=== PATIENT | female | born 1985 | race African-American/Black ===

== ENCOUNTER 2016-06-02 20:22 | Emergency (ER) | payer SELFPAY ==
[~2016-06-02] VITALS: Ht 154.9 cm; Wt 61.5 kg
[~2016-06-02 20:22] MED LIST: ALBU6.7H INH; HYDR-3533 PO; PROV5TAB PO; Z.0.NO CURRENT MEDS; ZITH250T PO
[2016-06-02 20:23] VITALS: BP 131/81; PULSE 80; RESP 16; TEMP 98.8; O2SAT 97
--- NOTE | 2016-06-02 22:35 | PD ---
HPI Chief Complaint: ENT Complaint Time Seen by Provider: 22:33 Travel History International Travel<30 days: No Contact w/Intl Traveler<30days: No Traveled to known affect area: No History of Present Illness HPI 31-year-old black female presents to emergency department with complaints of sore throat. She states that she has been sick now for nearly a week. She has pain with swallowing. He has had some hoarseness in her throat. She denies any fever or chills. No headache. No ear pain. No shortness of breath or wheezing. No nausea vomiting. No bowel pain or diarrhea. Symptoms are moderate. Worse with swallowing. No palliative activity. PFSH Past Medical History Medical History: Denies Significant Hx Blood Disorders: No Heart Rhythm Problems: No Cancer: No Diminished Hearing: No Endocrine: No Genitourinary: No Headaches: No Hypertension: No Immune Disorder: No Musculoskeletal: No Neurologic: No Psychiatric: No Reproductive: No Respiratory: No Migraines: No Seizures: No Tetanus Vaccination: < 5 Years ?: Not : 5 Para: 2 Miscarriage: 1 : 1 Dilation and Curettage (D&C): Yes Past Surgical History Narrative Surgical , D&C Section: Yes Gynecologic Surgery: Yes ( WITH D&C APR 2009) Other Surgery: No Social History Alcohol Use: No Tobacco Use: No Substance Use: No Allergies-Medications (Allergen,Severity, Reaction): Coded Allergies: No Known Allergies (Verified , 06/02/16) Reported Meds & Prescriptions Reported Meds & Active Scripts Active Lortab 5 mg/325 mg (Hydrocodone/Acetaminophen 5 mg/325 mg) 1 Tab 1 Tab PO Q6H PRN Proventil Hfa (Albuterol Sulfate) 6.7 Gm Aero 2 Puff INH Q4H PRN * SHAKE WELL BEFORE USE * Zithromax Z-Cali (Azithromycin) 250 Mg Tab 250 Mg PO DIRECTED 500 MG (2 TABLETS) PO ON DAY 1, THEN 250 MG (1 TABLET) PO ON DAYS 2 TO 5. Provera (Medroxyprogesterone Acetate) 5 Mg Tab 5 Mg PO DAILY 7 Days Reported No Current Meds (Miscellaneous Medication) Misc Review of Systems Except as stated in HPI: all other systems reviewed are Neg Physical Exam Narrative GENERAL: Well-developed, well-nourished in no acute distress. Nontoxic appearing. HEAD: Normocephalic, atraumatic. EYES: Pupils equal round and reactive. Extraocular motions intact. No scleral icterus. No injection or drainage. ENT: TMs clear without erythema. The external auditory canals clear. Nose: clear . Posterior pharynx is pink and moist. Positive tonsillar edema left greater than right. No exudate. Uvula midline. Airway patent. NECK: Trachea midline.Supple, nontender, moves head freely. No central bony tenderness or spasm. Positive anterior and tonsillar cervical adenopathy CARDIOVASCULAR: Regular rate and rhythm without murmurs, gallops, or rubs. RESPIRATORY: Clear to auscultation. Breath sounds equal bilaterally. No wheezes , rales, or rhonchi. GASTROINTESTINAL: Abdomen soft, non-tender, nondistended. No hepato-splenomegaly , or palpable masses. No guarding. EXTREMITIES: No clubbing, cyanosis, or edema. No joint tenderness, effusion, or edema noted. BACK: Nontender without deformity or crepitance. No flank tenderness. Data Data Last Documented VS Vital Signs Date Time Temp Pulse Resp B/P Pulse Ox O2 Delivery O2 Flow Rate FiO2 06/02/16 20:23 98.8 80 16 131/81 97 Room Air Orders Group A Rapid Strep Screen (06/02/16 22:32) Amoxicillin (Trimox) (06/02/16 23:45) Prednisone (Deltasone) (06/02/16 23:45) MDM Medical Decision Making Medical Screen Exam Complete: Yes Emergency Medical Condition: Yes Medical Record Reviewed: Yes Interpretation(s) Rapid strep: Positive group A strep Differential Diagnosis MDM: High Differential diagnoses: Strep throat, viral pharyngitis, mono, peritonsillar abscess, retropharyngeal abscess, Alexi's angina Narrative Course A rapid strep sent. Diagnosis Primary Impression: Acute streptococcal pharyngitis Patient Instructions: General Instructions Departure Forms: Tests/Procedures, Work Release Special Instructions: No work 2-3 days. Additional Instructions: Rest. Force fluids. Saltwater gargles. Tylenol and Advil. Chloraseptic [place] Cepastat lozenge. Prednisone, Amoxicillin. Follow-up with a primary care doctor in one week. Return to the ER if any problems. Med/Other Pt SpecificInfo: Prescription(s) given Scripts Prednisone (Deltasone)20 Mg Tab20 Mg PO BID #8 TAB Prov:Marek Cox MD 06/02/16 Amoxicillin 500 Mg Tab1,000 Mg PO BID #40 TAB Prov:Marek Cox MD 06/02/16 Disposition: 01 DISCHARGE HOME Condition: Stable Danilo Todd Jun 02, 2016 22:35
[2016-06-02] MEDS ORDERED: predniSONE 20 MG TAB PO ONE (23:45)
[2016-06-02] MEDS ORDERED: AMOXICILLIN (TRIHYDRATE) 500 MG CAP PO ONE (23:45)
[2016-06-02] MEDS ORDERED: PRED-503 PO (23:47)
[2016-06-02] MEDS ORDERED: AMOX500T PO (23:47)
== END 2016-06-03 00:21 | disposition home or self-care (01) ==
LOC: NEPB 20:22
DX: J02.0 Streptococcal pharyngitis (principal)
CPT/HCPCS: 87880; 99283; J7512